=== PATIENT | male | born 1945 | race Caucasian/White ===

== ENCOUNTER 2017-04-11 09:30 | Day surgery (SDC) | payer OTHER ==
[~2017-04-11] VITALS: Ht 175.3 cm; Wt 75.9 kg
[2017-04-11] MEDS ORDERED: LIDOCAINE 1%, 2ML ONE (10:06)
[2017-04-11] MEDS ORDERED: LACTATED RINGERS 1,000 ML IV SCH (10:07)
[2017-04-11 10:10] VITALS: BP 169/90
[2017-04-11] MEDS ORDERED: FINA5TAB4 PO (10:28)
[2017-04-11] MEDS ORDERED: ALBU90AE INH (10:28)
[2017-04-11] MEDS ORDERED: ASPI-496 PO (10:28)
[2017-04-11] MEDS ORDERED: LANS15CA5 PO (10:28)
[2017-04-11] MEDS ORDERED: MOME220A9 INH (10:28)
[2017-04-11] MEDS ORDERED: AMLO5TAB2 PO (10:28)
[2017-04-11] MEDS ORDERED: FERR325T18 PO (10:28)
[2017-04-11] MEDS ORDERED: MORP15TA3 PO (10:28)
[2017-04-11] MEDS ORDERED: FENTANYL PF 100 MCG/2ML ONE ×2 (10:28→10:44)
[2017-04-11] MEDS ORDERED: MIDAZOLAM 1 MG/ML, 2ML ONE ×2 (10:28→10:44)
[2017-04-11] MEDS ORDERED: OLOD4MIS2 PO (10:28)
[2017-04-11] MEDS ORDERED: TIOTROPIUM (10:28)
[2017-04-11] MEDS ORDERED: ALBUTEROL SULFATE 2.5 MG/3 ML NPPB ONE (10:30)
[2017-04-11] MEDS ORDERED: ALBUTEROL SULFATE 2.5 MG/3 ML ONE ×2 (10:32→12:14)
[2017-04-11] MEDS ORDERED: LIDOCAINE-MPF 2% ,5ML ONE (10:34)
[2017-04-11] MEDS ORDERED: PROPOFOL 10 MG/ML, 20ML ONE (10:34)
[2017-04-11] MEDS ORDERED: SUCCINYLCHOLINE 20 MG/ML, 10ML ONE (10:35)
[2017-04-11 10:52] LABS: MEAN CORPUSCULAR HEMOGLOBIN 32.4 pg (27.5-34.5); MEAN CORPUSCULAR HGB CONC 32.7 g/dL (33.2-36.2); MEAN CORPUSCULAR VOLUME 99.1 fL (81-97); MEAN PLATELET VOLUME 7.1 fL (7.4-10.4); PLATELET COUNT 507 x10^3/uL (130-400); RED BLOOD COUNT 3.66 x10^6/uL (4.38-5.82); RED CELL DISTRIBUTION WIDTH 23.9 % (9.4-14.8)
[2017-04-11 10:54] LABS: ALANINE AMINOTRANSFERASE 24 U/L (12-78); ALBUMIN 4.1 g/dL (3.4-5.0); ANION GAP 6 mmol/L (5-15); CALCIUM 8.6 mg/dL (8.5-10.1); CHLORIDE 101 mmol/L (98-107)
[2017-04-11 10:57] LABS: ALKALINE PHOSPHATASE 51 U/L (45-117); BILIRUBIN,TOTAL 1.1 mg/dL (0.2-1.0); CREATININE 0.74 mg/dL (0.7-1.3); TOTAL PROTEIN 7.8 g/dL (6.4-8.2)
[2017-04-11] MEDS ORDERED: HYDROmorphone 1 MG/ML, 1ML ONE ×2 (11:03→11:17)
[2017-04-11] MEDS ORDERED: ONDANSETRON 2MG/ML, 2ML IVPush PRN (12:00)
[2017-04-11] MEDS ORDERED: ACETAMINOPHEN 325 MG TABLET PO PRN (12:00)
[2017-04-11] MEDS ORDERED: hydrALAzine 20 MG/ML, 1ML IV PRN (12:00)
[2017-04-11] MEDS ORDERED: FENTANYL PF 100 MCG/2ML IV PRN (12:00)
[2017-04-11] MEDS ORDERED: ALBUTEROL/IPRATROPIUM 2.5MG/0.5MG, 3 ML NPPB PRN (12:00)
[2017-04-11] MEDS ORDERED: PROMETHAZINE 25 MG/ML, 1ML IV PRN (12:00)
[2017-04-11] MEDS ORDERED: HYDROmorphone 1 MG/ML, 1ML IV PRN (12:00)
[2017-04-11] MEDS ORDERED: OXYcodone 5 MG/5 ML ORAL.SOL UDC PO PRN (12:00)
[2017-04-11] MEDS ORDERED: MEPERIDINE/PF 25MG/0.5ML IVPush PRN (12:00)
[2017-04-11 12:30] LABS: MD YES
[2017-04-11] MEDS ORDERED: OXYcodone 5 MG/5 ML ORAL.SOL UDC ONE (12:31)
[2017-04-11] MEDS ORDERED: ACETAMINOPHEN 650 MG/20.3 ML UDC ONE (12:31)
[2017-04-11 12:32] LABS: BAND#(MANUAL) 1.43 x10^3/uL; BANDS%(MANUAL) 11 % (0-7); BASOS#(MANUAL) 0.13 x10^3/uL (0-0.1); BASOS% (MANUAL) 1 % (0-1); EOS#(MANUAL) 0.78 x10^3/uL (0.0-0.4); EOS% (MANUAL) 6 % (1-7); LYMPH#(MANUAL) 1.17 x10^3/uL (1-3.4); LYMPHS% (MANUAL) 9 % (22-44); MONOS% (MANUAL) 10 % (2-9); NRBC % (MANUAL) 1 % (0-1); SEG#(MANUAL) 8.19 x10^3/uL (1.8-6.8); SEGS% (MANUAL) 63 % (42-75)
[2017-04-11 12:35] LABS: HYPOCHROMIA 1+; OVALOCYTES 1+; SCHISTOCYTES 1+
[2017-04-11 12:36] LABS: <PLATELET ESTIMATE> INCREASED; <PLT MORPHOLOGY> NORMAL PLT MORPH; ANISOCYTOSIS 2+; POLYCHROMASIA 1+
[2017-04-11] MEDS ORDERED: ONDANSETRON 2MG/ML, 2ML ONE (15:24)
[2017-04-11] MEDS ORDERED: DEXAMETHASONE 4 MG/ML, 1ML ONE (15:24)
== END 2017-04-11 14:05 ==
LOC: OUT 09:30
PROVIDERS: ATTEND Internal Medicine
DX: D12.4 Benign neoplasm of descending colon (principal); D12.3 Benign neoplasm of transverse colon; D12.0 Benign neoplasm of cecum; K55.20 Angiodysplasia of colon without hemorrhage; K64.8 Other hemorrhoids; J44.9 Chronic obstructive pulmonary disease, unspecified; Z88.1 Allergy status to other antibiotic agents
CPT/HCPCS: 36415; 43235; 45385; 80053; 85025; 88305; 93005; 94640; J0330; J1100; J1170; J2250; J2405; J2704; J3010; J3490; J7120; J7613

== ENCOUNTER 2017-08-22 08:38 | Day surgery (SDC) | payer OTHER ==
[~2017-08-22] VITALS: Ht 175.3 cm; Wt 78.6 kg
[~2017-08-22 08:38] MED LIST: ALBU90AE INH; AMLO5TAB2 PO; ASPI-496 PO; FERR325T18 PO; FINA5TAB4 PO; LANS15CA5 PO; MOME220A9 INH; MORP15TA3 PO; OLOD4MIS2 PO; TIOTROPIUM
[2017-08-22 09:49] VITALS: BP 153/82
[2017-08-22] MEDS ORDERED: AMLO10TA2 PO (09:49)
[2017-08-22] MEDS ORDERED: ESOM40CA PO (09:49)
[2017-08-22] MEDS ORDERED: PROPOFOL 10 MG/ML, 20ML ONE ×2 (10:20→11:01)
[2017-08-22] MEDS ORDERED: GLUCAGON 1 MG ONE (10:48)
[2017-08-22] MEDS ORDERED: ALBUTEROL/IPRATROPIUM 2.5MG/0.5MG, 3 ML NPPB PRN (11:00)
[2017-08-22] MEDS ORDERED: LACTATED RINGERS 1,000 ML IV SCH (11:00)
[2017-08-22] MEDS ORDERED: ALBUTEROL SULFATE 2.5 MG/3 ML NPPB PRN (11:00)
[2017-08-22] MEDS ORDERED: ALBUTEROL/IPRATROPIUM 2.5MG/0.5MG, 3 ML ONE (11:40)
== END 2017-08-22 12:55 ==
LOC: OUT 08:38
PROVIDERS: ATTEND Internal Medicine
DX: K55.21 Angiodysplasia of colon with hemorrhage (principal); K21.9 Gastro-esophageal reflux disease without esophagitis; D64.9 Anemia, unspecified; I10 Essential (primary) hypertension; J44.9 Chronic obstructive pulmonary disease, unspecified; Z88.6 Allergy status to analgesic agent; Z87.891 Personal history of nicotine dependence
CPT/HCPCS: 44360; 93005; 94640; J1610; J2704; J7620